=== PATIENT | male | born 1980 | race Caucasian/White ===

== ENCOUNTER 2023-03-27 07:15 | Emergency (ER) | payer BC ==
[~2023-03-27] VITALS: Ht 182.9 cm; Wt 85.0 kg
[2023-03-27 07:32] VITALS: BP 142/89; PULSE 66; RESP 18; TEMP 98.2; O2SAT 100
== END 2023-03-27 14:17 | disposition left against medical advice (07) ==
LOC: ER 07:42 → EDBEDREQTM 10:36 → EDBEDREQ 10:36 → CANBEDREQ 13:44 → ER 14:17
DX: R00.2 Palpitations (principal); F12.90 Cannabis use, unspecified, uncomplicated; F14.90 Cocaine use, unspecified, uncomplicated; F17.200 Nicotine dependence, unspecified, uncomplicated; I50.9 Heart failure, unspecified
CPT/HCPCS: 71045; 93005; 99283